=== PATIENT | male | born 2000 | race Caucasian/White ===

== ENCOUNTER 2024-06-09 18:28 | Emergency (ER) | payer MEDICAID, SELFPAY ==
[2024-06-09 18:30] VITALS: BP 127/76; PULSE 86; RESP 15; TEMP 36.7; O2SAT 97; BMI 20.9
--- NOTE | 2024-06-09 19:01 | EX.ED.DYSGE1 ---
HPI History of Present Illness Chief Complaint: General Illness Narrative Narrative: 44-year-old male who denies significant past medical history presents with multiple somatic complaints, mainly body aches, along with headache that has had for the last 3 days. He is employed as a [employer] worker. He states that today he noticed dark urine as well. It went from clear on Thursday, 4 days ago, to darker yellow, now to dark. He denies any dysuria or gross hematuria. No recent nausea or vomiting, no other symptoms. However, he states over the last year or so he has had loose stools. No exacerbating or alleviating factors. He states that he is here for laboratory work to find out what is going on. PFS PFSH Allergy/AdvReac Type Severity Reaction Status Date / Time No Known Allergies Allergy Verified 06/09/24 18:32 ROS ROS ED ROS Narrative Constitutional: No fever, no chills. HEENT: No sore throat. No neck pain. No loss of vision. No rhinorrhea. Cardiovascular: No chest pain. No palpitations. No pedal edema. Respiratory: No cough, no shortness of breath. Abdominal: No abdominal pain. No nausea. No vomiting. Genitourinary: No dysuria. No hematuria. Positive dark urine Musculoskeletal: Positive multiple myalgias. No arthralgias. Neurologic: Positive headaches. No dizziness. No lightheadedness. Skin: No rash. No change in color. Psychiatric: No depression. No anxiety. EXAM Physical Exam Narrative Exam Narrative: Afebrile. Vital signs noted. HEENT: Normocephalic. Atraumatic. PERRL, EOMI. Neck soft and supple. No point tenderness or step off. No scleral icterus. Cardiovascular: Regular rate and rhythm. No murmurs, rubs, or gallops appreciated. Respiratory: No tachypnea. Lungs clear to auscultation bilaterally. Gastrointestinal: Abdomen soft, nontender, with normoactive bowel sounds. No rebound or guarding. Neurological: Awake. Alert. Nonfocal, nonlateralizing. Skin: No rash. Normal color. No pallor. Musculoskeletal: No pedal edema. Full range of motion extremities. Const Vital Signs: 06/09/24 18:30 06/09/24 19:00 Temperature 98.1 F Temperature Source Temporal Pulse Rate 86 Respiratory Rate 15 Respiratory Effort Normal Non-Labored Respiratory Pattern Normal Blood Pressure 127/76 H Blood Pressure Mean 93 Pulse Ox 97 Oxygen Delivery Method Room Air MDM MDM MDM Narrative Medical decision making narrative: In the differential diagnosis is dehydration versus hepatorenal syndrome versus urinary tract infection, versus liver failure. I have low suspicion for anything but the dehydration versus intravascular volume depletion. He is not tachycardic here. He has no abdominal pain. I do not feel he needs any CT imaging of his abdomen. Additionally, I do not feel he needs a CT of the brain for his headache. Upon entering the room, he is resting comfortably was using his cellular telephone. I will check his electrolyte panel and CBC to look for dehydration and a urinalysis to rule out infection. He will be bolused normal saline 1 L intravenously. I reviewed his laboratory work and he has neutropenia that slight at 4.3 which I think is nonspecific, hemoglobin normal at 15.1, hematocrit 43.1, platelet count low at 138. There is no prior with which to compare. However, I do not feel he needs platelet transfusion. Sodium is slightly low at 133 with normal potassium of 3.6 and chloride 100. BUN normal at 9 with creatinine 0.91. LFTs are slightly elevated with an AST of 55 and an ALT of 68 but normal alk phos of 97. No feel he needs any emergent imaging. Urinalysis obtained and reviewed and there are 150 ketones. No evidence of infection. I do not feel antibiotics are indicated. At this point in time, I feel he can be discharged to follow-up with his primary care provider. He was told he will most likely need repeat laboratory work. I do not feel he requires observation or admission at this time. Return instructions to the emergency department were reviewed. Disposition is discharged home in stable condition. History & Record Review Discussion w/independent historian: Patient Lab Data Attestation: I reviewed the patient's lab results. Labs: Laboratory Results - last 24 hr 06/09/24 19:20 WBC 4.3 L RBC 4.91 Hgb 15.1 Hct 43.1 MCV 87.8 MCH 30.8 MCHC 35.0 RDW Std Deviation 37.6 RDW Coeff of Logan 11.6 Plt Count 138 L MPV 8.9 Immature Gran % (Auto) 0.200 Neut % (Auto) 51.9 Lymph % (Auto) 34.7 Garden % (Auto) 11.3 H Eos % (Auto) 0.5 Baso % (Auto) 1.4 H Absolute Neuts (auto) 2.2 Absolute Lymphs (auto) 1.48 Nucleated RBC % 0 Sodium 133 L Potassium 3.6 Chloride 100 Carbon Dioxide 26.0 Anion Gap 7 BUN 9 Creatinine 0.91 Estim Creat Clear Calc 134.92 Est GFR (MDRD) Af Amer 131 Est GFR (MDRD) Non-Af 108 BUN/Creatinine Ratio 9.9 L Glucose 94 Calcium 9.4 Total Bilirubin 0.70 AST 55 H ALT 68 H Alkaline Phosphatase 97 Total Protein 7.7 Albumin 4.0 Globulin 3.7 Albumin/Globulin Ratio 1.1 Urine Color Yellow Urine Clarity Clear Urine pH 5.0 Ur Specific Barron 1.020 Urine Protein 15 H Urine Glucose (UA) Normal Urine Ketones 150 A* Urine Occult Blood 10 H Urine Nitrite Negative Urine Bilirubin Negative Urine Urobilinogen 1 H Ur Leukocyte Esterase Negative Urine RBC 0 SEEN Urine WBC 0 SEEN Ur Squamous Epith Cells 0 SEEN Urine Bacteria 0 SEEN Urine Mucus 0 SEEN Discharge Plan Triage Chief Complaint: General Illness ED Provider: Jose Luis Guzman Dx/Rx/DC Orders Clinical Impression: Dehydration, Myalgia, Elevated liver function tests, Urine ketones Instructions: ED Dehydration (Adult), ED Myalgias Primary Care Provider: Care Physician,No Primary Referrals: Care Physician,No Primary [Primary Care Provider] - Activity Restrictions/Additional Instructions: Follow-up with your primary care provider on your insurance card. Drink plenty of fluids, especially water. You may need to have your labs rechecked in the next few weeks. Return with new or worsening symptoms. Print Language: Lao Disposition Disposition: Home, Self Care
[2024-06-09] MEDS: 0.9% Normal Saline (1000mL) 1,000 ML 999 ML IV (19:26)
[2024-06-09 19:32] LABS: Bacteria 0 SEEN /hpf (None Seen); Mucous, Urine 0 SEEN /hpf (<or=2+); Red Blood Cells-Urine 0 SEEN /hpf (0-5); Squamous Epithelial Cells - UA 0 SEEN /hpf (0-5); White Blood Cells 0 SEEN /hpf (0-5)
[2024-06-09 19:33] LABS: Absolute Lymphocyte Count 1.48 X10^3/uL (0.83-4.51); Absolute Neutrophil Count 2.2 X10^3/uL (2.0-7.7); Basophil# 0.06 X10^3/uL; Basophil% 1.4 % (0-1); Eosinophil# 0.02 X10^3/uL; Eosinophils% 0.5 % (0-5); Hematocrit 43.1 % (40-54); Hemoglobin 15.1 g/dL (13.0-16.5); Lymphocyte # 1.48 X10^3/ul (0.83-4.51); Lymphocyte % 34.7 % (19-41); Mean Corpuscular Hgb 30.8 pg (27.0-32.0); Mean Corpuscular Volume 87.8 fL (80-94); Mean Platelet Vol. 8.9 fl (6.2-12.0); Monocyte# 0.48 X10^3/uL; Monocyte% 11.3 % (0-10); NRBC Flagged by Analyzer 0 % (0-5); Neutrophil # 2.21 X10^3/uL (2.7-7.7); Neutrophil % 51.9 % (47-70); POSITIVE MORPHOLOGY YES; Platelet Count 138 K/mm3 (150-450); RBC Distribution Width CV 11.6 % (11.6-14.6); RBC Distribution Width SD 37.6 fl (35.1-43.9); Red Blood Count 4.91 M/mm3 (4.6-6.2); White Blood Count 4.3 K/mm3 (4.4-11.0)
[2024-06-09 19:34] LABS: Color, Urine Yellow (Yellow); Glucose, Dipstick Normal (Normal); Leukocyte Esterase-Dipstick Negative /ul (Negative); Nitrite-Dipstick Negative (Negative); Occult Blood-Urine 10 /ul (Negative); Protein-Dipstick 15 mg/dl (Negative); Urine Bilirubin Dipstick Negative (Negative); Urine Clarity Clear (Clear); Urine Urobilinogen 1 mg/dl (Normal)
[2024-06-09 19:37] LABS: Differential Indicated SCAN CRITERIA MET
[2024-06-09 19:38] LABS: Ketone-Dipstick 150 mg/dl (Negative)
[2024-06-09 19:49] LABS: ALB/GLOB Ratio 1.1 RATIO (0.9-2.4); AST(SGOT) 55 U/L (15-37); Alanine Aminotransfer ALT/SGPT 68 U/L (16-61); Alkaline Phosphatase 97 U/L (45-117); Anion Gap 7 (5-15); BUN 9 mg/dL (7-18); BUN/Creat Ratio 9.9 RATIO (10-20); Calcium,Total 9.4 mg/dL (8.5-10.1); Chloride 100 mmol/L (98-107); Creatinine, Serum 0.91 mg/dL (0.70-1.30); EST Glomerular Filtration Rate 108 mL/min (>60); Est Glom Filt Rate - Afr Amer 131 mL/min (>60); Estimated Creatinine Clearance 134.92 ml/min; Globulin 3.7 g/dL (2.2-4.2); Glucose 94 mg/dL (74-106); Potassium 3.6 mmol/L (3.5-5.1); Protein, Total 7.7 g/dL (6.4-8.2); Sodium Level 133 mmol/L (136-145)
[2024-06-09 20:30] LABS: Differential Comment SCANNED; Reactive Lymphocyte 1+
[2024-06-09 20:53] VITALS: BP 130/86; PULSE 78; RESP 18; TEMP 36.6; O2SAT 98
== END 2024-06-09 20:55 | disposition home or self-care (01) ==
PROVIDERS: Emergency Provider Emergency Medicine; Visit Provider Emergency Medicine
DX: E86.0 Dehydration (principal); M79.10 Myalgia, unspecified site; R79.89 Other specified abnormal findings of blood chemistry
CPT/HCPCS: 80053; 81001; 85025; 99282; J7030